=== PATIENT | male | born 1975 | race Caucasian/White ===

== ENCOUNTER 2018-04-09 15:09 | Emergency (ER) | payer OTHER ==
[~2018-04-09] VITALS: Ht 190.5 cm; Wt 127.0 kg
[2018-04-09] MEDS ORDERED: NORCO 5-325 TA1 EACH PO (16:43)
[2018-04-09 17:11] VITALS: BP 134/81
== END 2018-04-09 17:11 | disposition home or self-care (01) ==
LOC: ER 15:09
DX: S52.202A Unspecified fracture of shaft of left ulna, initial encounter for closed fracture (principal); S76.012A Strain of muscle, fascia and tendon of left hip, initial encounter; S05.12XA Contusion of eyeball and orbital tissues, left eye, initial encounter; W11.XXXA Fall on and from ladder, initial encounter; Y93.89 Activity, other specified; Y92.89 Other specified places as the place of occurrence of the external cause; Y99.8 Other external cause status